=== PATIENT | male | born 1955 | race Caucasian/White ===

== ENCOUNTER 2021-10-24 16:40 | Emergency (ER) | payer MEDICARE, SELFPAY ==
[2021-10-24 16:45] VITALS: BP 187/105; PULSE 114; RESP 16; TEMP 36.7; O2SAT 100; BMI 27.2
[2021-10-24] MEDS: LIDOCAINE 2% (GLYDO) 6 ML GEL TOP (17:31)
[2021-10-24 18:04] LABS: Bacteria Urine None Seen; RBC Urine 5-10/HPF (0-5/HPF); WBC Urine 1-5/HPF (0-5/HPF)
[2021-10-24 18:05] LABS: Culture Indicated Urine Specimen Cultured
[2021-10-24] MEDS: TAMSULOSIN 0.4 MG CAPSULE PO (19:16)
--- NOTE | 2021-10-24 19:17 | ED.MALEGU ---
HPI - Male Genitourinary General Chief complaint: Urogenital-Male Stated complaint: NOT PEEING Time Seen by Provider: 10/24/21 18:07 History of Present Illness HPI Narrative: 66-year-old male former smoker with history of kidney stones and a recent diagnosis of urinary infection presents with a chief complaint of inability to urinate over the past day or so. He states that he had some decreasing in his urine stream and then a complete inability and now has developed some suprapubic tenderness. He is not dizzy nor weak or lightheaded. He denies any chest pain or shortness of breath. He did as he fever or shaking chills. Related Data Previous Rx's Medication Instructions Recorded tamsulosin 0.4 mg capsule (Flomax) 0.4 mg PO DAILY #30 caps 10/24/21 Allergies Allergy/AdvReac Type Severity Reaction Status Date / Time No Known Drug Allergies Allergy Verified 10/24/21 16:48 Review of Systems Review of Systems Narrative: GENERAL: Denies chills, fatigue, malaise, fever, sweats. HEENT: Denies sinus pain, ear pain, sore throat, difficulty swallowing, dizziness. RESPIRATORY: Denies dyspnea, cough, wheezing, hemoptysis, sputum. CARDIOVASCULAR: Denies chest pain, palpitations, orthopnea, edema, GASTROINTESTINAL: Denies nausea, vomiting, abdominal pain, diarrhea, constipation, melena. : See HPI MUSCULOSKELETAL: denies weakness, joint pain, or bony pain SKIN: Denies rash, skin lesions, or other NEUROLOGIC: Denies weakness, headache, numbness, change in speech, confusion, seizures, incoordination. PSYCHIATRIC: No concerning psychosocial issues. 12 point review of systems is negative except for those stated above Patient History Social History Smoking Status: Former smoker Smoking Status: Former smoker alcohol intake frequency: 0-2 drinks per day Alcohol type: wine Substance Use Type: does not use Exam Narrative Exam Narrative: GEN: AOx3 and in mild distress EYES: Pupils are equal, round, and reactive to light and accommodation. Extraoccular muscles are intact bilaterally. There is no subconjunctival hemorrhage or exudate. CHEST: Lungs are clear to auscultation bilaterally and free of wheezes, rales, or rhonchi. Heart rate is regular rhythm, there are no murmurs, clicks, rubs, or gallops. There is no chest wall tenderness. ABD: Abdomen is soft and nontender. There is no guarding or rebound. Bowel sounds are normal in all 4 quadrants. There is no mass or organomegaly. EXT: Full painless ROM of all extremities with no loss of sensation or strength. SKIN: Warm, pink, and dry. No erythema or rash Initial Vital Signs Initial Vital Signs: Vital Signs Temperature 98.0 F 10/24/21 16:45 Pulse Rate 114 H 10/24/21 16:45 Respiratory Rate 16 10/24/21 16:45 Blood Pressure 187/105 H 10/24/21 16:45 Pulse Oximetry 100 10/24/21 16:45 Oxygen Delivery Method 10/24/21 16:45 Course Orders Ordered: Discontinued Medications Lidocaine HCl (Lidocaine 2% (Glydo) 6 Ml Gel) 6 ml TOP NOW ONE Stop: 10/24/21 17:07 Last Admin: 10/24/21 17:31 Dose: 6 ml Documented By: LOVE Tamsulosin HCl (Tamsulosin 0.4 Mg Capsule) 0.4 mg PO NOW ONE Stop: 10/24/21 18:25 Last Admin: 10/24/21 19:16 Dose: 0.4 mg Documented By: ANTONELLA Reevaluation(s) Reevaluation #1: Rojas catheter placed and patient experienced a near complete and immediate improvement in symptoms Vital Signs Vital signs: Vital Signs - 8 hr 10/24/21 16:45 Temperature 98.0 F Pulse Rate 114 H Respiratory Rate 16 Blood Pressure 187/105 H Pulse Oximetry 100 Oxygen Delivery Method Room Air MDM - Male Genitourinary Lab Data Labs: Lab Results 10/24/21 Range/Units 17:15 Urine RBC 5-10/hpf H (0-5/HPF) Urine WBC 1-5/hpf (0-5/HPF) Urine Bacteria None seen (None) Ur Culture Indicated? Specimen cultured Urine Dip Bedside Urine Glucose Negative Bedside Urine Bilirubin - Negative Bedside Urine Ketone +/- 5 Urine Specific [place] 1.015 Bedside Urine Occult Blood +/- Bedside Urine pH 6.0 Bedside Urine Protein - Negative Bedside Urine Urobilinogen - Negative Bedside Urine Nitrite - Negative Bedside Urine Leukocytes +/- 15 Esterase Discharge Plan Departure Patient Disposition: Home Clinical Impression: Acute retention of urine Instructions: DI for Urinary Retention in Men Activity Restrictions/Additional Instructions: *You have been diagnosed with [acute urinary retention ] *What to do: *Please continue to take your regular medications as directed. [ x] New medication prescriptions sent to your pharmacy: [ [facility]] [ ] New medication written as a paper prescription [ ] No new medications given *Please follow up with urology (Dr. Gonzalez / Mic) in 2-3 days, call for an appointment. Let them know you were seen in the Emergency Department and that we ask that you be seen in follow up. We will electronically transmit a record of today's note *Return to Emergency Department if you should have any new, worsening or concerning symptoms, such as [fever greater than 101 F, shaking chills, worsening pain, persistent vomiting or other bothersome symptoms] Prescriptions: New tamsulosin [Flomax] 0.4 mg capsule 0.4 mg PO DAILY Qty: 30 0RF Referrals: Lucretia Gonzalez MD [Physician] - Visit Report Forms: Patient Portal/API
[2021-10-24 19:29] VITALS: BP 194/105
== END 2021-10-24 19:32 | disposition home or self-care (01) ==
PROVIDERS: Emergency Medicine; Emergency Provider Emergency Medicine
DX: R33.8 Other retention of urine (principal)
CPT/HCPCS: 51798; 81003; 81015; 87086; 99283; 99284

== ENCOUNTER → 2021-11-17 13:50 | Outpatient (CLI) | payer MEDICARE, SELFPAY ==
[2021-11-17 14:49] LABS: BUN Creatinine Ratio 23.2 (6-22); Blood Urea Nitrogen 19 mg/dL (9-20); Calcium 9.8 mg/dL (8.4-10.2); Carbon Dioxide 29 mmol/L (22-32); Chloride 100 mmol/L (98-107); Estimated Glomerular Filt Rate > 60 mL/min (>60); Glucose 131 mg/dL (80-110); HEMOLYSIS < 15 (0-50); Potassium 4.2 mmol/L (3.4-5.1); Sodium 137 mmol/L (137-145)
[2021-11-17 15:18] LABS: Prostate Specific Antigen 6.31 ng/mL (0.10-4.00)
== END ==
PROVIDERS: Referring Provider Specialist; Visit Provider Specialist
DX: R97.20 Elevated prostate specific antigen [PSA] (principal); N40.0 Benign prostatic hyperplasia without lower urinary tract symptoms
CPT/HCPCS: 36415; 80048; 84153

== ENCOUNTER → 2021-11-18 13:24 | Outpatient (CLI) | payer MEDICARE, SELFPAY ==
--- NOTE | 2021-11-18 13:43 | DI.CT.S_ITS ---
PROCEDURE: CT IVP A/P W/WO INDICATIONS: hematuria. history of stones TECHNIQUE: Optional 5 mm thick noncontrast images acquired from the diaphragm to the symphysis pubis. After the administration of intravenous contrast, 5 mm thick images acquired from the diaphragm to the symphysis pubis after a 10-minute delay. 2 mm thick coronal and sagittal reformats were then performed of the kidneys and ureters. For radiation dose reduction, the following was used: automated exposure control, adjustment of mA and/or kV according to patient size. COMPARISON: None. FINDINGS: Image quality: Excellent. Lung bases: There is a 1.2 cm ground-glass nodule or nodular infiltrate in the right lower lobe (series 4, image 10). Heart size is normal. Moderate coronary artery calcification. Small hiatal hernia. Urinary system: There are bilateral renal calculi. The largest stone is in the superior pole of the left kidney measuring [address] density 614 HU. A tiny 2 mm stone is seen in the inferior pole of the left kidney. There are 3 tiny 1 mm stones in the inferior pole of the right kidney. Both kidneys are normal in size, without hydronephrosis. Mild nonspecific perinephric fat stranding bilaterally. There is normal bilateral renal enhancement. Renal calyces appear normal in morphology when filled with contrast. Opacified portions of both ureters demonstrate normal caliber. Bladder wall is thickened. There is a Rojas catheter within the bladder. No calcified bladder stones. Prostate is enlarged. Other solid organs: Liver is normal in size and enhancement. Gallbladder is normal. Biliary system is non dilated. Pancreas enhances normally. Spleen is normal in size and enhancement. There is nodularity in left adrenal. Peritoneum and bowel: Bowel loops demonstrate normal wall thickness and caliber. No free fluid or air. Nodes and vessels: No retroperitoneal or mesenteric adenopathy by size criteria. Aorta and inferior vena cava are normal in size. Abdominal wall: No ventral hernias. Pelvis: No pathologic free pelvic fluid. There are small fat containing inguinal hernias. No enlarged inguinal lymph nodes. Bones: There is grade 1 anterolisthesis of L4 on L5. No suspicious bony lesions. No vertebral body compression fractures. IMPRESSION: 1. Nephrolithiasis bilaterally. The largest stone is in the superior pole of the left kidney measuring [address] density 614 HU. No hydronephrosis. No ureter stones. 2. Diffuse bladder wall thickening. Differential diagnoses are chronic bladder outlet obstruction versus cystitis. Bladder neoplasm is felt less likely but not entirely excluded. 3. Enlarged prostate. 4. A 1.2 cm ground-glass nodule or nodular infiltrate in right lower lobe. Recommend a short-term follow-up CT in 3 months. 5. Moderate coronary artery atherosclerosis. Dictated by: Darnell Martinez M.D. on 11/18/2021 at 16:18 Approved by: Darnell Martinez M.D. on 11/18/2021 at 16:35
== END ==
PROVIDERS: Referring Provider Specialist; Visit Provider Specialist
DX: N20.0 Calculus of kidney (principal); N40.0 Benign prostatic hyperplasia without lower urinary tract symptoms; R31.0 Gross hematuria; R91.8 Other nonspecific abnormal finding of lung field; I25.10 Atherosclerotic heart disease of native coronary artery without angina pectoris; K44.9 Diaphragmatic hernia without obstruction or gangrene
CPT/HCPCS: 74178; Q9967

== ENCOUNTER → 2021-12-05 13:21 | Outpatient (CLI) | payer MEDICARE, SELFPAY ==
--- NOTE | 2021-12-05 13:22 | DI.RAD.S_ITS ---
PROCEDURE: XR KUB INDICATIONS: Urinary retention/ failed void trial TECHNIQUE: One view of the abdomen acquired. COMPARISON: [facility], CT, CT IVP A/P W/WO, 11/18/2021, 14:02. FINDINGS: Surgical changes and devices: None. Bowel: Bowel gas pattern is normal. Soft tissues: No suspicious abdominal calcifications. Visualized solid organ contours appear normal in size. 2 calcifications projected over the inferior pole of the left kidney, largest measuring 1.0 cm. Bones: No suspicious bony lesions. IMPRESSION: 2 calcifications projected over the inferior pole of the left kidney, largest measuring 1.0 cm. Dictated by: Christian You RRA Interpreted: Ulisses Rice MD on 12/05/2021 at 14:08 Transcribed by: SERA on 12/05/2021 at 14:09 Approved by: Ulisses Rice M.D. on 12/05/2021 at 16:14
== END ==
PROVIDERS: Referring Provider Specialist; Visit Provider Specialist
DX: R31.0 Gross hematuria (principal); R33.9 Retention of urine, unspecified; Z87.442 Personal history of urinary calculi; N20.0 Calculus of kidney
CPT/HCPCS: 74018

== ENCOUNTER → 2021-12-22 07:54 | Outpatient (CLI) | payer MEDICARE, SELFPAY ==
[2021-12-22 09:19] LABS: COVID19 -Nasal RAPID Negative (Negative)
== END ==
PROVIDERS: Visit Provider Specialist
DX: Z20.822 Contact with and (suspected) exposure to COVID-19 (principal)
CPT/HCPCS: 87635; C9803

== ENCOUNTER 2021-12-23 09:29 | Day surgery (SDC) | payer MEDICARE, SELFPAY ==
[2021-12-15 14:38] VITALS: BMI 27.2
[2021-12-23] VITALS (7 sets, daily range): BP systolic 98–169; BP diastolic 49–72; PULSE 53–84; RESP 12–18; TEMP 36.5–37.6; O2SAT 94–100; BMI 27.2
[2021-12-23] MEDS: LACTATED RINGERS 1,000 ML 42 ML IV ×2 (10:00→11:55)
--- NOTE | 2021-12-23 10:50 | PM.PREOP ---
Pre-operative Note COVID-19 Criteria for continued procedure: Possibility delay results in more complex future surgery or treatment, Continuing or worsening of significant or severe pain, Deterioration of the patient's condition or overall health, Delay expected to result in less-positive ultimate med/surg outcome and Non-surgical alternatives not available or appropriate per current SOC Interval Note History & Physical reviewed/Exam performed by Physician: Yes Changes to H&P: No
--- NOTE | 2021-12-23 11:07 | SUR.OPER ---
Supine on [facility] bed, head on pillow, arms padded at <90 degrees abduction, legs uncrossed, gell pad under heals
--- NOTE | 2021-12-23 11:40 | PM.OP.1 ---
Operative Date/Time/Diagnoses Date of procedure: 12/23/21 Time of procedure: 11:40 Pre-op diagnosis: 1. Left nephrolithiasis. 2. History of renal colic. 3. Intermittent gross hematuria. Post-op diagnosis: same Procedure & Clinicians Procedure: 1. Left extracorporeal shockwave lithotripsy (maximal power level 7.0 x 2000 shocks). Same procedure as scheduled: Yes Indications: 1. Left renal calculi. 2. History of renal colic. 3. Intermittent gross hematuria. Surgeon: Lucretia Gonzalez Click Yes if Unassisted: Yes Anesthesia Type: General Operative Notes Findings: Index calculus unchanged position compared to preoperative imaging. Closure Type: not applicable Specimen(s): none sent Estimated Blood Loss (mL): 0 Blood products transfused: none Procedure in detail: The patient was positioned in supine was administered general anesthesia. The above-described index calculus was then localized in the X, Y, and Z plane. Lithotripsy was then commenced at minimal power level for a total of 200 shocks. A 2 minute pause was then conducted. Lithotripsy was then resumed and power level was gradually increased to a maximum of 7.0. The calculus and its fragments were relocalized as needed throughout the treatment. A 2000 shocks there was excellent radiographic evidence of stone comminution. The patient was then awakened, transferred to [facility], then transferred to recovery in stable condition. Complications: none Post-operative Condition: stable Disposition: PACU Plan for aftercare: Discharge home.
[2021-12-23] MEDS: FUROSEMIDE 40 MG/4 ML VIAL 20 MG IV (12:02)
--- NOTE | 2021-12-23 12:55 | SUR.PHASEII ---
Pt A&Ox4, denies any distress, VSS, and ready to discharge home. Pt void 500 mL pink clear urine, 3 stones collected. Instructed pt to strain all urine and bring to follow-up appointment per MD written instructions. Discharge instructions reviewed with pt, with time allowed for questions. IV DC'd intact, dressing applied. Pt left unit stable via w/c with volunteer assist to ER entrance where friend will transport pt home.
[2021-12-27 20:13] LABS: Ca oxalate dihydrate 20 % (.); Ca oxalate monohydr 80 % (.); Size 4x3 mm (.)
== END 2021-12-23 12:50 | disposition home or self-care (01) ==
PROVIDERS: Referring Provider Specialist; Visit Provider Specialist
PROC: (CPT 50590; principal; 2021-12-23 10:45)
DX: N20.0 Calculus of kidney (principal); R31.0 Gross hematuria
CPT/HCPCS: 50590; 82365; 82962; J1885; J1940; J2250; J2405; J2704; J3010

== ENCOUNTER → 2022-01-23 07:32 | Outpatient (CLI) | payer MEDICARE, SELFPAY ==
--- NOTE | 2022-01-23 07:35 | DI.RAD.S_ITS ---
PROCEDURE: XR KUB INDICATIONS: calculus of kidney TECHNIQUE: One view of the abdomen acquired. COMPARISON: [facility], CT, CT IVP A/P W/WO, 11/18/2021, 14:02. [facility], CR, XR KUB, 12/05/2021, 13:24. FINDINGS: Surgical changes and devices: None. Bowel: Bowel gas pattern is normal. Soft tissues: A 7 millimeter stone superimposed over the left inferior pole is present, questionable if it is the same stone previously seen. No stones in the ureter identified. Bones: No suspicious bony lesions. IMPRESSION: 7 millimeter stone projecting over the inferior pole of the left kidney. Difficult to correlate with prior x-ray and CT. CT may be necessary for more accurate evaluation if clinically necessary. Dictated by: Raymundo Katz M.D. on 01/23/2022 at 9:01 Approved by: Raymundo Katz M.D. on 01/23/2022 at 9:05
[2022-01-23 10:37] LABS: BUN Creatinine Ratio 20.5 (6-22); Blood Urea Nitrogen 17 mg/dL (9-20); Calcium 9.5 mg/dL (8.4-10.2); Carbon Dioxide 29 mmol/L (22-32); Chloride 102 mmol/L (98-107); Estimated Glomerular Filt Rate > 60 mL/min (>60); Glucose 132 mg/dL (80-110); HEMOLYSIS < 15 (0-50); Potassium 4.6 mmol/L (3.4-5.1); Sodium 139 mmol/L (137-145)
[2022-01-23 11:02] LABS: Prostate Specific Antigen 8.52 ng/mL (0.10-4.00)
== END ==
LOC: LAB 07:33 → RAD 07:35
PROVIDERS: Referring Provider Specialist; Visit Provider Specialist
DX: N20.0 Calculus of kidney; N13.8 Other obstructive and reflux uropathy; N40.1 Benign prostatic hyperplasia with lower urinary tract symptoms
CPT/HCPCS: 36415; 74018; 80048; 84153